=== PATIENT | male | born 1985 | race Caucasian/White ===

== ENCOUNTER 2019-05-21 05:13 | Emergency (ER) | payer OTHER ==
[~2019-05-21] VITALS: Ht 177.8 cm; Wt 83.9 kg
[2019-05-21 05:15] VITALS: BP 145/80
[2019-05-21] MEDS: MORPHINE SULFATE 4 MG/ML SYR/VIAL IV ONE (07:11)
[2019-05-21] MEDS: SODIUM CHLORIDE 0.9% 500 ML IV ONE (07:11)
[2019-05-21] MEDS: ONDANSETRON HCL 4 MG/2 ML VIAL IV ONE (07:12)
[2019-05-21] MEDS: CARISOPRODOL 350 MG TAB PO ONE (07:12)
== END 2019-05-21 08:30 | disposition home or self-care (01) ==
LOC: ER 05:13
DX: M54.5 Low back pain (principal); M79.18 Myalgia, other site; Z88.6 Allergy status to analgesic agent
CPT/HCPCS: 72131; 96374; 96375; 99284; J2270; J2405; J7040

== ENCOUNTER 2021-01-09 17:35 | Emergency (ER) | payer OTHER ==
[~2021-01-09] VITALS: Ht 177.8 cm; Wt 81.6 kg
[2021-01-09 18:18] VITALS: BP 114/69
[2021-01-09] MEDS ORDERED: HYDROcodone-ACET 5/325MG TAB PO ONE (19:30)
[2021-01-09] MEDS ORDERED: NEOMYCIN-BACITRACIN-POLYM 15GM TOP OINT TOP SCH (20:00)
[2021-01-09] MEDS ORDERED: NEOMYCIN-BACITRACIN-POLYM 15GM TOP OINT TOP ONE (20:01)
== END 2021-01-09 20:01 | disposition home or self-care (01) ==
LOC: ER 17:35
DX: S60.221A Contusion of right hand, initial encounter (principal); S80.211A Abrasion, right knee, initial encounter; Z88.6 Allergy status to analgesic agent; Z88.8 Allergy status to other drugs, medicaments and biological substances; W23.0XXA Caught, crushed, jammed, or pinched between moving objects, initial encounter; Y93.89 Activity, other specified; Y92.89 Other specified places as the place of occurrence of the external cause; Y99.0 Civilian activity done for income or pay
CPT/HCPCS: 73130